=== PATIENT | male | born 1935 | race Two or more races ===

== ENCOUNTER 2023-02-25 14:21 | Outpatient (CLI) | payer OTHER | END 2023-02-25 14:23 | disposition home or self-care (01) | LOC: LAB 14:21 | PROVIDERS: ATTEND Urology | DX: R97.20 Elevated prostate specific antigen [PSA] (principal) ==

== ENCOUNTER 2023-03-12 07:14 | Outpatient (CLI) | payer OTHER | END 2023-03-12 07:24 | disposition home or self-care (01) | LOC: SONOGRAMA 07:14 | PROVIDERS: ATTEND Urology | DX: C61 Malignant neoplasm of prostate (principal); D29.1 Benign neoplasm of prostate ==